=== PATIENT | female | born 1960 | race Hispanic/Latino ===

== ENCOUNTER → 2020-03-17 | Outpatient (CLI) | payer OTHER | END | disposition home or self-care (01) | LOC: SHCH 09:45 | PROVIDERS: ATTEND Internal Medicine Cardiovascular Disease | DX: I51.7 Cardiomegaly (principal); R01.1 Cardiac murmur, unspecified | CPT/HCPCS: 93306; 93356 ==

== ENCOUNTER → 2020-03-26 | Outpatient (CLI) | payer OTHER | END | disposition home or self-care (01) | LOC: RAH 10:11 | PROVIDERS: ATTEND Internal Medicine Cardiovascular Disease | DX: Z13.6 Encounter for screening for cardiovascular disorders (principal) | CPT/HCPCS: 75571 ==

== ENCOUNTER 2022-03-23 21:24 | Emergency (ER) | payer BC, OTHER ==
[~2022-03-23] VITALS: Ht 162.6 cm; Wt 89.4 kg
[2022-03-23 21:53] VITALS: BP 159/85
[2022-03-23] MEDS ORDERED: IBUPROFEN 600 MG TABLET PO ONE (22:00)
[2022-03-23] MEDS ORDERED: IBUP-2070 PO (22:25)
== END 2022-03-23 22:37 | disposition home or self-care (01) ==
LOC: EDH 21:24
DX: S82.301A Unspecified fracture of lower end of right tibia, initial encounter for closed fracture (principal); S82.831A Other fracture of upper and lower end of right fibula, initial encounter for closed fracture; S80.211A Abrasion, right knee, initial encounter; E78.00 Pure hypercholesterolemia, unspecified; K21.9 Gastro-esophageal reflux disease without esophagitis; Z90.49 Acquired absence of other specified parts of digestive tract; X50.1XXA Overexertion from prolonged static or awkward postures, initial encounter; Y93.89 Activity, other specified; Y92.89 Other specified places as the place of occurrence of the external cause; Y99.8 Other external cause status
CPT/HCPCS: 29515; 73562; 73610

== ENCOUNTER 2022-04-02 14:14 | Emergency (ER) | payer BC ==
[~2022-04-02] VITALS: Ht 162.6 cm; Wt 81.6 kg
[~2022-04-02 14:14] MED LIST: IBUP-2070 PO
[2022-04-02] MEDS: KETOROLAC 60 MG VIAL (30MG/ML) IM ONE (14:49)
[2022-04-02 17:17] VITALS: BP 162/72
== END 2022-04-02 17:19 | disposition home or self-care (01) ==
LOC: EDH 14:14
DX: S82.51XA Displaced fracture of medial malleolus of right tibia, initial encounter for closed fracture (principal); E78.00 Pure hypercholesterolemia, unspecified; K21.9 Gastro-esophageal reflux disease without esophagitis; W19.XXXA Unspecified fall, initial encounter; Y93.89 Activity, other specified; Y92.89 Other specified places as the place of occurrence of the external cause; Y99.8 Other external cause status
CPT/HCPCS: 99284; 73610; 96372; J1885